=== PATIENT | male | born 1975 | race Caucasian/White ===

== ENCOUNTER 2017-02-26 08:01 | Emergency (ER) | payer SELFPAY ==
[2017-02-26 08:15] VITALS: TEMP 97.5; O2SAT 99
[2017-02-26] MEDS ORDERED: chlordiazePOXIDE 25 MG CAP PO ONE (08:55)
--- NOTE | 2017-02-26 08:55 | EDPHY ---
H & P Stated Complaint: Went to [facility] for detox, sent here for ?meds/med clear;last ETOH @ 3am Time Seen by Provider: 02/26/17 08:50 HPI/ROS: CHIEF COMPLAINT: Alcohol withdrawal HISTORY OF PRESENT ILLNESS: The patient is a 41 y/o male, with a history of alcoholism, arriving from the [facility] for medical evaluation prior to detox complaining of tremulousness. He just got out of inpatient treatment 2 weeks ago and began drinking immediately upon release. He drinks at least 12 beers daily and says he drinks "so I wouldn't get sick." His last drink was around 03: 00, about 6 hours ago. He voluntarily presented to the [facility] this morning for detox. In addition to tremulousness he complains of nausea and bilateral hand tingling. He states these symptoms are similar to prior episodes of withdrawal. He denies recent illness, recent trauma, or other complaints. He has additional history of depression, but is otherwise healthy. REVIEW OF SYSTEMS: Constitutional: No fever, no chills Eyes: No visual changes ENT: No sore throat Respiratory: No cough, no shortness of breath Cardiac: No chest pain Gastrointestinal: +nausea, no vomiting, no abdominal pain Genitourinary: No hematuria, no dysuria Musculoskeletal: No leg pain or swelling Skin: No rash Neurological: see HPI Psychiatric: No depression - Personal History Current Tetanus Diphtheria and Acellular Pertussis (TDAP): Yes - Medical/Surgical History PMH: PMH includes: 1. Alcoholism 2. Depression - Paxil Hx Alcoholism: Yes Other PMH: anxiety/depression - Social History Smoking Status: Current every day smoker Additional Social History: Cigarette smoker. Daily alcohol dependence. PCP: Dr. Farris - Physical Exam Exam: General Appearance: Alert, no distress Eyes: Pupils equal and round, no conjunctival pallor or injection ENT, Mouth: Mucous membranes moist Neck: Normal inspection Respiratory: Lungs are clear to auscultation Cardiovascular: Regular rate and rhythm Gastrointestinal: Abdomen is soft and non- tender Neurological: A&O, nonfocal, normal gait, mild upper extremity tremulousness Skin: Warm and dry, no rash Extremities: Nontender, no pedal edema Psychiatric: Mood and affect normal Constitutional: Initial Vital Signs Temperature (C) 36.4 C 02/26/17 08:05 Heart Rate 90 02/26/17 08:05 Respiratory Rate 18 02/26/17 08:05 Blood Pressure 124/83 H 02/26/17 08:05 O2 Sat (%) 99 02/26/17 08:05 O2 Delivery Mode Room Air Allergies/Adverse Reactions: No Known Allergies Allergy (Verified 02/26/17 08:12) Home Medications: Medication Instructions Recorded PARoxetine HCL [Paxil 10mg (*)] 10 mg PO DAILY 02/26/17 Medical Decision Making ED Course/Re-evaluation: This is a 41 y/o male with a history of alcoholism who presents from the [facility] with mild upper extremity tremulousness about 6 hours after his last alcohol intake. His exam is otherwise unremarkable. He would like to return to the [facility] for detox voluntarily. He will receive 25mg PO Librium here and then be discharged to the [facility] with a Librium prepack. He is comfortable with this plan. Return precautions given. - Data Points Medications Given: Discontinued Medications Chlordiazepoxide HCl (Librium) 25 mg PO EDNOW ONE Stop: 02/26/17 08:56 Last Admin: 02/26/17 08:58 Dose: 25 mg Departure - Departure Disposition: Home, Routine, Self-Care Clinical Impression: Alcohol withdrawal Qualifiers: Complication of substance-induced condition: uncomplicated Qualified Code(s): F10.230 - Alcohol dependence with withdrawal, uncomplicated Condition: Good Instructions: Alcohol Withdrawal (ED) Additional Instructions: 1. Medically clear for detox. Go directly to the [facility]. 2. Take Librium as prescribed for withdrawal symptoms. Take one tablet every 6 hours as needed. 3. Follow up with your primary care provider as needed. Referrals: NONE *PRIMARY CARE P,. [Primary Care Provider] - As per Instructions [facility] Detox 24 Hours [Outside] - As per Instructions Report Scribed for: Kaylan Mota Report Scribed by: Sarah Warner Date of Report: 02/26/17 Time of Report: 08:55 Physician Review and Approval Statement: 02/26/17 08:55 Portions of this note were transcribed by a medical practice administrator. I personally performed a history, physical exam, medical decision making, and confirmed accuracy of information the transcribed note.
[2017-02-26] MEDS ORDERED: CHLORDIAZEPOXIDE 25MG PREPK#6 BTL TAKEHOME ONE (08:57)
[2017-02-26 09:15] VITALS: BP 121/80; PULSE 86; RESP 16
== END 2017-02-26 09:15 | disposition home or self-care (01) ==
DX: F10.239 Alcohol dependence with withdrawal, unspecified (principal); F17.200 Nicotine dependence, unspecified, uncomplicated

== ENCOUNTER 2017-04-19 15:56 | Emergency (ER) | payer SELFPAY ==
[2017-04-19] MEDS ORDERED: ONDANSETRON 4 MG/2 ML VIAL IVP ONE (16:01)
[2017-04-19] MEDS ORDERED: NS 1,000 ML IV ONE (16:01)
[2017-04-19] MEDS ORDERED: ONDANSETRON 4 MG/2 ML VIAL ONE (16:02)
[2017-04-19 16:08] VITALS: RESP 18; TEMP 98.2
--- NOTE | 2017-04-19 16:53 | EDPHY ---
H & P Time Seen by Provider: 04/19/17 16:03 HPI/ROS: CHIEF COMPLAINT: Vomiting and diarrhea HISTORY OF PRESENT ILLNESS: 41-year-old male with a history of alcoholism presents with vomiting and diarrhea. He has recently been on an alcohol binge and his last drink was yesterday evening. This morning he awoke with nausea and had 1 episode of vomiting. He went to work and then had several episodes of diarrhea, followed by another episode of vomiting. Associated with epigastric pain after eating pizza for lunch. No known ill contacts or bad food ingestion. No fever. Prior alcohol withdrawal symptoms have been resting tremor only. REVIEW OF SYSTEMS: Constitutional: No fever, no chills Eyes: No visual changes ENT: No sore throat Respiratory: No cough, no shortness of breath Cardiac: No chest pain Genitourinary: no dysuria Musculoskeletal: No leg pain or swelling Skin: No rash Neurological: No headache, no weakness Psychiatric: depression Past Medical/Surgical History: Alcoholism Social History: no drug use Smoking Status: Current every day smoker Physical Exam: General Appearance: Alert, pleasant Eyes: Pupils equal and round, no conjunctival pallor or injection ENT, Mouth: Mucous membranes moist Neck: Normal inspection Respiratory: Lungs are clear to auscultation Cardiovascular: Regular rate and rhythm Gastrointestinal: Abdomen is soft and nontender Neurological: A&O, nonfocal, normal gait, no tremor Skin: Warm and dry Extremities: Nontender, no pedal edema Psychiatric: Mood and affect normal Constitutional: Initial Vital Signs Temperature (C) 36.8 C 04/19/17 16:03 Heart Rate 79 04/19/17 16:03 Respiratory Rate 18 04/19/17 16:03 Blood Pressure 163/95 H 04/19/17 16:03 O2 Sat (%) 100 04/19/17 16:03 O2 Delivery Mode Room Air Allergies/Adverse Reactions: No Known Allergies Allergy (Verified 04/19/17 16:02) Home Medications: Medication Instructions Recorded PARoxetine HCL [Paxil 10mg (*)] 10 mg PO DAILY 02/26/17 Ondansetron Odt [Zofran Odt 4 mg 4 mg PO Q4 PRN #6 tab 04/19/17 (*)] Medical Decision Making ED Course/Re-evaluation: This patient presents with vomiting and diarrhea. He is concerned but alcohol withdrawal, but I suspect that this is gastroenteritis. He feels much better after 1 L of normal saline and IV Zofran. His abdominal exam is benign. I will give him oral fluids and if he tolerates this well, will discharge home. He has resources to help him with alcohol withdrawal and to maintain sobriety. Tolerated oral fluids well. Ready to go home. Differential Diagnosis: Differential diagnosis includes though it is not limited to appendicitis, cholecystitis, diverticulitis, pyelonephritis, bowel perforation, small bowel obstruction. - Data Points Medications Given: Discontinued Medications Sodium Chloride (Ns) 1,000 mls @ 0 mls/hr IV ONCE ONE PRN Reason: Wide Open Stop: 04/19/17 16:02 Last Admin: 04/19/17 16:04 Dose: 1,000 mls Ondansetron HCl (Zofran) 4 mg IVP EDNOW ONE Stop: 04/19/17 16:02 Last Admin: 04/19/17 16:05 Dose: 4 mg Departure - Departure Disposition: Home, Routine, Self-Care Clinical Impression: Vomiting and diarrhea Alcohol dependence Qualifiers: Substance use status: uncomplicated Qualified Code(s): F10.20 - Alcohol dependence, uncomplicated Condition: Good Instructions: Gastroenteritis (ED) Additional Instructions: Clear liquids for 24 hours. Advance diet as tolerated. Referrals: HEATH SUTTON [Medical Doctor] - 1-2 days without fail Prescriptions: Ondansetron Odt [Zofran Odt 4 mg (*)] 4 mg PO Q4 PRN #6 tab PRN Reason: Nausea
[2017-04-19 17:26] VITALS: BP 105/80; PULSE 71; O2SAT 97
== END 2017-04-19 17:26 | disposition home or self-care (01) ==
LOC: EDUNIT#
DX: R11.10 Vomiting, unspecified (principal); R19.7 Diarrhea, unspecified; F10.20 Alcohol dependence, uncomplicated; F17.200 Nicotine dependence, unspecified, uncomplicated
CPT/HCPCS: 96374; J2405

== ENCOUNTER 2017-05-19 20:42 | Emergency (ER) | payer SELFPAY ==
[2017-05-19 20:56] VITALS: BP 129/94; PULSE 95; RESP 16; TEMP 98.2; O2SAT 94
--- NOTE | 2017-05-19 21:05 | EDPHY ---
H & P Stated Complaint: ETOH detox, nausea. HPI/ROS: HPI CHIEF COMPLAINT: Alcohol intoxication, "I am going through alcohol detox" HISTORY OF PRESENT ILLNESS: Patient is a 41-year-old male, alcoholic, drinks large amount of beer every day. He states he drank a 12 pack today. Last drink was 2 hours ago. Presents emergency room stating that he would like to go to detox. He has no other complaints. Denies chest pain shortness of breath. Denies numbness or tingling. Denies focal weakness. Denies nausea vomiting. Past Medical History: Alcoholism Past Surgical History: No recent surgery Social History: Denies daily use of drugs or tobacco. Drinks alcohol daily. Beer. Family History: Noncontributory. ROS REVIEW OF SYSTEMS: A comprehensive 10 point review of systems is otherwise negative aside from elements mentioned in the history of present illness. Exam Constitutional smells of alcohol, triage nursing summary reviewed, vital signs reviewed, awake/alert. Eyes normal conjunctivae and sclera, EOMI, PERRLA. HENT normal inspection, atraumatic, moist mucus membranes, no epistaxis, neck supple/ no meningismus, no raccoon eyes. Respiratory clear to auscultation bilaterally, normal breath sounds, no respiratory distress, no wheezing. Cardiovascular rate normal, regular rhythm, no murmur, no edema, distal pulses normal. Gastrointestinal soft, non-tender, no rebound, no guarding, normal bowel sounds, no distension, no pulsatile mass. Genitourinary no CVA tenderness. Musculoskeletal no midline vertebral tenderness, full range of motion, no calf swelling, no tenderness of extremities, no meningismus, good pulses, neurovascularly intact. Skin pink, warm, & dry, no rash, skin atraumatic. Neurologic no signs of tremors on exam, no tongue fasciculations, awake, alert and oriented x 3, AAOx3, moves all 4 extremities equally, motor intact, sensory intact, CN II-XII intact, normal cerebellar, normal vision, normal speech. Psychiatric normal mood/affect. Heme/Lymph/Immune no lymphadenopathy. Differential Diagnosis: Includes but is not limited to in a particular order acute alcohol intoxication, early alcohol withdrawal. Medical Decision Making: Plan for this patient Librium p.o.. Breath alcohol. Librium prescription. Disposition to the [facility]. Here in the emergency room he appears well nontoxic no evidence of significant alcohol draw. No evidence of DTs. Safe for [facility] to the [facility]. Source: Patient - Personal History Current Tetanus/Diphtheria Vaccine: Yes Current Tetanus Diphtheria and Acellular Pertussis (TDAP): Yes Tetanus Vaccine Date: < 10 years - Medical/Surgical History Hx Asthma: No Hx Chronic Respiratory Disease: No Hx Diabetes: No Hx Cardiac Disease: No Hx Renal Disease: No Hx Cirrhosis: No Hx Alcoholism: Yes Hx HIV/AIDS: No Hx Splenectomy or Spleen Trauma: No Other PMH: anxiety/depression, alcholism - Social History Smoking Status: Current every day smoker Constitutional: Initial Vital Signs Temperature (C) 36.8 C 05/19/17 20:53 Heart Rate 95 05/19/17 20:53 Respiratory Rate 16 05/19/17 20:53 Blood Pressure 129/94 H 05/19/17 20:53 O2 Sat (%) 94 05/19/17 20:53 O2 Delivery Mode Room Air Allergies/Adverse Reactions: No Known Allergies Allergy (Verified 04/19/17 16:02) Home Medications: Medication Instructions Recorded PARoxetine HCL [Paxil 10mg (*)] 10 mg PO DAILY 02/26/17 Departure - Departure Disposition: Home, Routine, Self-Care Clinical Impression: Alcoholic intoxication Qualifiers: Complication of substance-induced condition: uncomplicated Qualified Code(s): F10.920 - Alcohol use, unspecified with intoxication, uncomplicated Condition: Good Instructions: Alcohol Intoxication (ED) Referrals: NONE *PRIMARY CARE P,. [Primary Care Provider] - As per Instructions
[2017-05-19] MEDS ORDERED: chlordiazePOXIDE 25 MG CAP PO ONE (21:08)
[2017-05-19] MEDS ORDERED: CHLORDIAZEPOXIDE 25MG PREPK#6 BTL TAKEHOME ONE (21:08)
== END 2017-05-19 21:27 | disposition home or self-care (01) ==
DX: F10.920 Alcohol use, unspecified with intoxication, uncomplicated (principal); F17.200 Nicotine dependence, unspecified, uncomplicated